=== PATIENT | male | born 1985 | race Caucasian/White ===

== ENCOUNTER 2018-12-14 20:02 | Emergency (ER) | payer OTHER ==
[~2018-12-14] VITALS: Ht 170.2 cm; Wt 70.3 kg
[2018-12-14 20:09] VITALS: BP_SYST 139
[2018-12-14] MEDS ORDERED: ACETAMINOPHEN 325 MG TABLET PO ONE (22:45)
[2018-12-14 23:39] VITALS: BP_SYST 139
== END 2018-12-14 23:36 | disposition home or self-care (01) ==
LOC: SED 20:02
DX: M79.606 Pain in leg, unspecified (principal); M25.512 Pain in left shoulder; M25.559 Pain in unspecified hip; R42 Dizziness and giddiness; Y93.89 Activity, other specified; Y92.413 State road as the place of occurrence of the external cause; Y99.8 Other external cause status
CPT/HCPCS: 70450-TC; 72170-TC; 73030; 99284